=== PATIENT | female | born 1985 | race African-American/Black ===

== ENCOUNTER 2022-12-19 11:58 | Emergency (ER) | payer OTHER, SELFPAY ==
[2022-12-19] VITALS (11 sets, daily range): BP systolic 106–144; BP diastolic 79–112; PULSE 74–103; RESP 14–26; TEMP 36.5; O2SAT 96–100
--- NOTE | ~2022-12-19 | CT_ITS ---
EXAMINATION: CT abdomen pelvis wo con DATE: 12/19/2022 13:05 INDICATION: Left inguinal hernia. Suprapubic pain. TECHNIQUE: Computed tomography (CT) of the abdomen and pelvis was performed without intravenous contr ast. Automated exposure control and iterative reconstruction technique were employed. The dose-length product was 736.89 mGy-cm. COMPARISON: None. FINDINGS: The visualized portions of the lung bases demonstrate minimal atelectasis. No pleural effus ion. The heart size is normal. No pericardial effusion. The liver, gallbladder, spleen, pancreas, adr enal glands, and kidneys are normal. There is no urolithiasis. There are no dilated loops of bowel. T he appendix is normal. There are no pathologically enlarged lymph nodes. There is no free intraperito ventura fluid. There is an umbilical hernia containing fat. There is mild lumbar spondylosis. IMPRESSION: 1. Umbilical hernia containing fat. Reviewed, dictated and finalized at location A.
[2022-12-19] MEDS: ONDANSETRON INJ 4 MG/2 ML VIAL IV PUSH (12:45)
[2022-12-19] MEDS: HYDROmorphone HCL INJ (*CRX) 1 MG/ML SYR 0.5 MG IV PUSH (12:45)
--- NOTE | 2022-12-19 12:48 | ED.GENADULT ---
HPI - General Adult General Chief complaint: Abdominal Pain Stated complaint: abdominal pain Time Seen by Provider: 12/19/22 12:13 Source: patient Mode of arrival: ambulatory Limitations: no limitations History of Present Illness HPI narrative: This is a 37-year-old female with no pertinent PMH who presents to the ED with chief complaint of lower abdominal pain and groin pain x1 month. Patient states that she initially had an injury while she was working out when she felt a tear that occurred while doing a hip extension. She states that she has subsequently had pain in the groin area since then and it is worsening in the past 2 to 3 days. Reports that the pain starts in the left groin area and radiates across the suprapubic abdomen. States it is becoming more painful and affecting her ability to do her normal activities so she wanted to get it checked out. Denies fevers, chills, urinary symptoms, problems with bowel movements, nausea, vomiting, numbness, weakness. Related Data Allergies Allergy/AdvReac Type Severity Reaction Status Date / Time No Known Allergies Allergy Verified 12/19/22 12:17 Exam Narrative: GENERAL: Well-appearing, well-nourished, and in no acute distress. Resting comfortably. HEAD: Normocephalic, atraumatic. EYES: PERRLA and EOMI. ENT: Nares clear, no rhinorrhea or epistaxis. Mucous membranes moist. Oropharynx without tonsillar hypertrophy exudate or other lesions. NECK: Supple. No adenopathy or masses. CHEST: No respiratory distress. Clear to auscultation. No wheezes rales or rhonchi HEART: Regular rate and rhythm. No murmur heard. Normal peripheral pulses. ABDOMEN: Soft, nontender, nondistended, normal active bowel sounds. No hernias or masses palpated. MSK: Normal range of motion. No edema. SKIN: Warm, dry, no rash. NEURO: Alert and oriented x3. No focal deficits. PSYCH: Normal mood and affect. Course Vital Signs Vital signs: Vital Signs Temperature 97.7 F 12/19/22 12:07 Pulse Rate 103 H 12/19/22 12:07 Respiratory Rate 18 12/19/22 12:07 Blood Pressure 137/112 H 12/19/22 12:07 Pulse Oximetry 100 12/19/22 12:07 Oxygen Delivery Room Air 12/19/22 12:07 Temperature 97.7 F 12/19/22 12:07 Pulse Rate 81 12/19/22 14:12 Respiratory Rate 16 12/19/22 14:12 Blood Pressure 117/79 12/19/22 14:12 Pulse Oximetry 98 12/19/22 14:12 Oxygen Delivery Room Air 12/19/22 12:07 Medical Decision Making MDM Narrative Medical decision making narrative: This is a 37-year-old female who presents to the ED with chief complaint of lower abdominal and groin pain onset after a workout injury that occurred a month ago. Vitals are normal. Exam is largely unremarkable. CT scan was ordered to rule out incarcerated hernia. CT of the abdomen and pelvis without contrast does not reveal any acute findings. There is evidence of an umbilical hernia but this is unrelated to her symptoms. Her symptoms are most likely consistent with muscle spasms following injury. She reiterates that the pain is worse with certain movements of the lower extremities. She is stable for discharge. I gave her prescription for anti-inflammatories and muscle relaxers. Advised that she follow-up with PCP. Patient is understanding and agreeable with plan for discharge and follow-up Vital Signs Vital Signs: Vital Signs Temperature 97.7 F 12/19/22 12:07 Pulse Rate 103 H 12/19/22 12:07 Respiratory Rate 18 12/19/22 12:07 Blood Pressure 137/112 H 12/19/22 12:07 Pulse Oximetry 100 12/19/22 12:07 Oxygen Delivery Room Air 12/19/22 12:07 Temperature 97.7 F 12/19/22 12:07 Pulse Rate 81 12/19/22 14:12 Respiratory Rate 16 12/19/22 14:12 Blood Pressure 117/79 12/19/22 14:12 Pulse Oximetry 98 12/19/22 14:12 Oxygen Delivery Room Air 12/19/22 12:07 Lab Data 12/19/22 12:49 12/19/22 12:49 Labs: Lab Results 12/19/22 Range/Units
[2022-12-19 12:57] LABS: Basophils Absolute Auto 0.1 K/mm3 (0.0-0.1); Basophils Percent Auto 0.8 % (0.2-1.2); Eosinophils Absolute Auto 0.1 K/mm3 (0-0.3); Eosinophils Percent Auto 1.6 % (0-4.4); Hematocrit 39.4 % (37.0-47.0); Hemoglobin 13.1 g/dL (12.0-15.0); Immature Granulocyte Absolute 0.02 K/mm3 (0.00-0.031); Immature Granulocyte Percent A 0.3 % (0-0.5); Lymphocytes Absolute Auto 2.45 K/mm3 (0.9-3.2); Lymphocytes Percent Auto 33.2 % (18.3-44.2); Mean Corpuscular HGB Conc 33.2 g/dl (32-36); Mean Corpuscular Hemoglobin 30.3 pg (26-34); Mean Corpuscular Volume 91.2 fl (80-100); Mean Platelet Volume 9.1 fl (7.4-10.4); Monocytes Absolute Auto 0.7 K/mm3 (0.1-0.6); Monocytes Percent Auto 9.6 % (2.6-8.5); Neutrophils Percent Auto 54.5 % (45.5-73.1); Platelet Count Result 351 k/mm3 (150-375); Red Blood Count 4.32 M/mm3 (4.2-5.4); Red Cell Distribution Width 13.4 % (11.5-14.5); White Blood Count 7.4 K/mm3 (4.5-10.0)
[2022-12-19 13:08] LABS: Alanine Aminotransferase 48 U/L (6-35); Alkaline Phosphatase 31 U/L (38-126); Anion Gap 3 mmol/L (8-16); Aspartate Amino Transferase 51 U/L (14-36); Bilirubin,Total 0.3 mg/dL (0.2-1.3); Blood Urea Nitrogen 7 mg/dL (7-17); Calcium 8.7 mg/dL (8.4-10.2); Carbon Dioxide 33 mmol/L (22-30); Chloride 101 mmol/L (98-107); Estimated CRCL calculation 92 ml/min; Estimated Glomerular Filt Rate > 60; Glucose 101 mg/dL (65-110); Potassium 4.1 mmol/L (3.4-5.0); Sodium 137 mmol/L (137-145)
== END 2022-12-19 14:13 | disposition home or self-care (01) ==
PROVIDERS: Emergency Provider Physician Assistant
DX: M62.838 Other muscle spasm (principal); K42.9 Umbilical hernia without obstruction or gangrene
CPT/HCPCS: 36415; 74176; 80053; 81025; 85025; 96374; 96375; 99284; J1170; J2405